=== PATIENT | female | born 1960 | race Caucasian/White ===

== ENCOUNTER → 2017-11-27 | Outpatient (CLI) | payer OTHER ==
[~2017-11-27] MED LIST: ALBU90OI61 INH; AMPDEX10CR PO; B-12250 MCG PO; D3-20002000 UNIT PO; Gastrocrom20 MG/1 ML PO; IODINE MC
== END ==
LOC: LAB SHORT 13:02 → PLD 13:02
DX: N95.0 Postmenopausal bleeding (principal)
CPT/HCPCS: 88305

== ENCOUNTER → 2019-07-31 | Outpatient (CLI) | payer OTHER ==
[~2019-07-31] MED LIST changes: +VERA80 PO
[2019-08-04 15:06] LABS: DELTA ALA 1.3 mg/24 hr (0.5-5.1)
== END | disposition home or self-care (01) ==
LOC: LAB 10:32 → LAB SHORT 10:32
PROVIDERS: Internal Medicine Hematology & Oncology
DX: E80.20 Unspecified porphyria (principal)
CPT/HCPCS: 81050; 82135

== ENCOUNTER 2019-09-08 10:25 | Day surgery (SDC) | payer OTHER ==
[~2019-09-08] VITALS: Ht 157.5 cm; Wt 105.3 kg
--- NOTE | 2019-09-08 12:18 | NUR ---
History, Chart, Medications and Allergies reviewed before start of procedure. Patient confirms NPO status and agrees with scheduled surgery. Patient States Post-Procedure ride home has been arranged with her , David. at bedside.
--- NOTE | 2019-09-08 13:02 | NUR ---
SPORTS BRA LEFT ON PATIENT PER PATIENT REQUEST. DR MAYORGA VERBALIZED APPROVAL OF PATIENT GOING TO OR WITH IT IN PLACE. PATIENT GAVE HER GOLD WEDDING BAND TO HER FOR SAFE KEEPING.
--- NOTE | 2019-09-08 13:07 | NUR ---
PATIENT'S UV PROTECTIVE GLASSES WORN INTO OR PER PATIENT REQUEST.
--- NOTE | 2019-09-08 15:08 | NUR ---
"DAY SURGERY RN | DISCHARGE VSS. A/O. DENIES PAIN AND NAUSEA. TOLERATING PO FLUIDS AND FOOD. SITE C/D/I. DISCHARGE INSTRUCTIONS AND RX GIVEN WITH FAMILY PRESENT. NO ISSUES. TAKEN IN WHEELCHAIR TO FRONT ENTRANCE. IS RIDE HOME."
== END 2019-09-08 22:47 | disposition home or self-care (01) ==
LOC: ORSCMMR 10:25 → ORD 12:00 → ORSCMMR 22:47
PROVIDERS: Obstetrics & Gynecology
PROC: 0UB98ZX Excision of Uterus, Via Natural or Artificial Opening Endoscopic, Diagnostic (ICD-10-PCS; principal; 2019-09-08 12:00)
DX: N95.0 Postmenopausal bleeding (principal); N84.0 Polyp of corpus uteri; N88.2 Stricture and stenosis of cervix uteri; I10 Essential (primary) hypertension; J45.909 Unspecified asthma, uncomplicated; K21.9 Gastro-esophageal reflux disease without esophagitis; Z86.73 Personal history of transient ischemic attack (TIA), and cerebral infarction without residual deficits; E03.9 Hypothyroidism, unspecified; E66.01 Morbid (severe) obesity due to excess calories; Z68.41 Body mass index [BMI] 40.0-44.9, adult; Z79.899 Other long term (current) drug therapy
CPT/HCPCS: 82947; 88305; J2250; J2405; J2704; J3010; J7120

== ENCOUNTER → 2020-11-23 | Outpatient (CLI) | payer OTHER ==
[2020-11-24 09:35] LABS: Stool Occult Bld Immuno 1 Negative (NEGATIVE)
== END ==
LOC: LAB 09:55 → LAB SHORT 09:55
PROVIDERS: Family Medicine
DX: Z00.00 Encounter for general adult medical examination without abnormal findings (principal)
CPT/HCPCS: G0328